=== PATIENT | female | born 1950 | race African-American/Black ===

== ENCOUNTER 2019-01-01 09:07 | Emergency (ER) | payer MEDICARE, MEDICAID ==
[~2019-01-01] VITALS: Ht 157.5 cm; Wt 47.0 kg
[~2019-01-01 09:07] MED LIST: ALBU18HF2 IH
[2019-01-01] MEDS ORDERED: DIPHENHYDRAMINE 25MG CAPSULE PO STA (11:10)
[2019-01-01 12:37] VITALS: BP 119/66
== END 2019-01-01 12:40 | disposition home or self-care (01) ==
LOC: ER 09:25
DX: T14.8XXA Other injury of unspecified body region, initial encounter (principal); I10 Essential (primary) hypertension; W57.XXXA Bitten or stung by nonvenomous insect and other nonvenomous arthropods, initial encounter; Y93.89 Activity, other specified; Y92.89 Other specified places as the place of occurrence of the external cause; Y99.8 Other external cause status
CPT/HCPCS: 99283

== ENCOUNTER 2022-06-01 11:23 | Emergency (ER) | payer MEDICARE, MEDICAID ==
[~2022-06-01] VITALS: Ht 157.5 cm; Wt 47.0 kg
[~2022-06-01 11:23] MED LIST changes: +ASPI-1406 MT; +NICO-645 TP; +VANC250C12 MT; +VANJ5 PO
[2022-06-01 11:26] VITALS: BP 116/65
[2022-06-01] MEDS ORDERED: VANCOMYCIN 1000MG/20ML ORAL SOLN PO SCH (12:00)
[2022-06-01] MEDS ORDERED: VANJ5 PO (12:24)
== END 2022-06-01 13:49 | disposition home or self-care (01) ==
LOC: ER 11:40
DX: A04.72 Enterocolitis due to Clostridium difficile, not specified as recurrent (principal); I10 Essential (primary) hypertension; F10.20 Alcohol dependence, uncomplicated; Y90.9 Presence of alcohol in blood, level not specified; J44.9 Chronic obstructive pulmonary disease, unspecified; F14.10 Cocaine abuse, uncomplicated; I25.2 Old myocardial infarction; Z86.73 Personal history of transient ischemic attack (TIA), and cerebral infarction without residual deficits
CPT/HCPCS: 99282; J3370